=== PATIENT | female | born 1995 | race Caucasian/White ===

== ENCOUNTER → 2018-01-30 02:19 | Emergency (ER) | payer BC ==
[2018-01-30 02:40] LABS: ABS Basophils 0 10^3/ul (0-0.2); ABS Eosinophils 0 10^3/ul (0-0.6); ABS Lymphocytes 2.7 10^3/ul (1.0-4.8); ABS Monocytes 0.4 10^3/ul (0-0.8); ABS Neutrophils 4.3 10^3/ul (1.5-7.7); ABS Nucleated RBC 0 10^3/ul; Eosinophil % 0.5 %; Hematocrit 44 % (35-47); Hemoglobin 14.8 g/dl (12.0-16.0); Lymphocyte % 36.1 %; Mean Corpuscular HGB Conc 34 g/dl (31-36); Mean Corpuscular Hemoglobin 31 pg (27-31); Mean Corpuscular Volume 92 fL (80-97); Mean Platelet Volume 7.1 fL (7.4-10.4); Nucleated Red Blood Cells % 0.1; Platelet Count 356 10^3/ul (150-450); Red Blood Count 4.76 10^6/ul (4.00-5.40); Red Cell Distribution Width 12 % (10.5-15); White Blood Count 7.4 10^3/ul (3.5-10.8)
--- NOTE | 2018-01-30 02:42 | ED ---
Substance Abuse/Use - HPI Summary HPI Summary: A 22 y/o female brought in by ambulance presents to ED severely intoxicated. As per triage, "Pt arrived BLS by [facility] ETOH, Pt was found by friends highly ETOH and vomiting". LEVEL 5 CAVEAT. - History Of Current Complaint Chief Complaint: EDSubstanceAbuse Stated Complaint: ETOH Time Seen by Provider: 01/30/18 02:21 Hx Obtained From: EMS Hx From Patient Unobtainable Due To: Other - ALCOHOL INTOXICATION. - Allergies/Home Medications Allergies/Adverse Reactions: Allergies Allergy/AdvReac Type Severity Reaction Status Date / Time Unable to Assess Allergy Verified 01/30/18 02:44 Home Medications: Home Medications Unobtainable 01/30/18 [History Confirmed 01/30/18] PMH/Surg Hx/FS Hx/Imm Hx Infectious Disease History: No Infectious Disease History: Denies: Traveled Outside the [place] in Last 30 Days Review of Systems All Other Systems Reviewed And Are Negative: No Physical Exam - Summary Physical Exam Summary: Appearance: Well appearing, no pain distress Skin: warm, dry, reflects adequate perfusion Head/face: normal Eyes: EOMI, AMY ENT: normal Neck: supple, non-tender Respiratory: CTA, breath sounds present Cardiovascular: RRR, pulses symmetrical Abdomen: non-tender, soft Musculoskeletal: normal, strength/ROM intact Neuro: sensory motor intact, alert and confused Triage Information Reviewed: Yes Vital Signs On Initial Exam: Initial Vitals Pulse BP Pulse Ox 120 121/77 98 01/30/18 02:17 01/30/18 02:17 01/30/18 02:17 Vital Signs Reviewed: Yes Diagnostics - Vital Signs Vital Signs Temp Pulse Resp BP Pulse Ox 01/30/18 02:36 97 F 110 16 121/77 98 01/30/18 02:32 114 97 01/30/18 02:17 120 121/77 98 - Laboratory Result Diagrams: 01/30/18 02:32 01/30/18 02:32 Lab Statement: Any lab studies that have been ordered have been reviewed, and results considered in the medical decision making process. Re-Evaluation - Re-Evaluation First Eval Re-Evaluation Time: 10:45 Change: Improved Comment: Patient is awake, alert and oriented. Course/Dx - Course Course Of Treatment: A 22 y/o female brought in by ambulance presents to ED severely intoxicated. As per triage, "Pt arrived BLS by [facility] ETOH, Pt was found by friends highly ETOH and vomiting". LEVEL 5 CAVEAT. PATIENT WAS SIGNED OUT TO DR. ROSE VIA DR. SIMMONS, PENDING EVALUATION AND DISPOSITION, DURING SHIFT CHANGE ON 01/30/2018 AT 0700. - Diagnoses Differential Diagnosis/HQI/PQRI: Positive: Alcohol Abuse Provider Diagnoses: Alcohol intoxication Discharge - Sign-Out/Discharge Documenting (check all that apply): Sign-Out Patient - SIDDHARTHA Signing out patient TO: Chavo Rose Receiving patient FROM: Quinten Simmons - Discharge Plan Condition: Stable Disposition: HOME Patient Education Materials: Alcohol Intoxication (ED) Referrals: [facility] [place] PHYSICIAN REFERRAL [Outside] (1-3 days) Additional Instructions: Follow up with your primary care physician in 1-3 days. RETURN TO THE EMERGENCY DEPARTMENT FOR CHANGING OR WORSENING SYMPTOMS. - Billing Disposition and Condition Condition: STABLE Disposition: Home - Attestation Statements Document Initiated by Scribe: Yes Documenting Scribe: Medhat Pickens Provider For Whom Michelet is Documenting (Include Credential): Quinten Simmons MD Scribe Attestation: Medhat Navarrete scribed for Quinten Simmons MD on 01/30/18 at 2129. Scribe Documentation Reviewed: Yes Provider Attestation: The documentation as recorded by the Medhat rivas accurately reflects the service I personally performed and the decisions made by Quinten may MD Status of Scribe Document: Viewed
[2018-01-30 02:57] LABS: EGFR Non-African American 103.3 (>60)
--- NOTE | 2018-01-30 08:23 | ED ---
Progress - Progress Note Progress Note: Patient was signed out from Dr. Diaz to Dr. Rose, pending sobriety, during shift change at 07:00 01/30/18. Upon re-eval patient is awake, alert and oriented. She will be discharged when her friend arrives to drive her home. Re-Evaluation - Re-Evaluation First Eval Re-Evaluation Time: 10:45 Change: Improved Comment: Patient is awake, alert and oriented. Course/Dx - Course Course Of Treatment: Patient was signed out from Dr. Diaz to Dr. Rose, pending sobriety, during shift change at 07:00 01/30/18. Upon re-eval patient is awake, alert and oriented. The patient will be discharged. I discussed results with patient and she reports feeling better. She is hemodynamically stable and safe for discharge. Strict return precautions given and she will otherwise follow up with her PCP. - Diagnoses Provider Diagnoses: Alcohol intoxication Discharge - Sign-Out/Discharge Documenting (check all that apply): Patient Departure - DC - Discharge Plan Condition: Stable Disposition: HOME Patient Education Materials: Alcohol Intoxication (ED) Referrals: [facility] [place] PH[facility] REFERRAL [Outside] (1-3 days) Additional Instructions: Follow up with your primary care physician in 1-3 days. RETURN TO THE EMERGENCY DEPARTMENT FOR CHANGING OR WORSENING SYMPTOMS. - Billing Disposition and Condition Condition: STABLE Disposition: Home - Attestation Statements Document Initiated by Michelet: Yes Documenting Scribe: Kurt Lewis Provider For Whom Michelet is Documenting (Include Credential): Chavo Rose MD Scribe Attestation: I, Kurt Lewis scribed for Chavo Rose MD on 02/01/18 at 0247. Scribe Documentation Reviewed: Yes Provider Attestation: The documentation as recorded by the Kurt rivas accurately reflects the service I personally performed and the decisions made by me, Grace Rose MD Status of Scribe Document: Viewed
[2018-01-30 10:09] VITALS: BP 100/60
== END | disposition home or self-care (01) ==
LOC: ED 02:19
DX: F10.120 Alcohol abuse with intoxication, uncomplicated (principal)
CPT/HCPCS: 36415; 80053; 80320; 85025; 99285; G0480